=== PATIENT | male | born 1985 | race Caucasian/White ===

== ENCOUNTER 2016-11-29 16:18 | Emergency (ER) | payer OTHER ==
[2016-11-29] MEDS ORDERED: PROMETHAZINE INJ 25 MG/ML VIAL (J2550) As Ordered ONE (17:18)
[2016-11-29] MEDS ORDERED: NICOTINE 21MG/24HR 1 EA TRANSDERMAL As Ordered ONE (17:27)
[2016-11-29 17:44] LABS: MEAN CORPUSCULAR HGB CONC 34.4 g/dl (32.0-36.5); MEAN CORPUSCULAR VOLUME 93.1 fl (80.0-96.0); RED CELL DISTRIBUTION WIDTH 12.2 % (11.5-14.5)
[2016-11-29 18:14] LABS: ALBUMIN 4.6 GM/DL (3.2-5.2); ALBUMIN/GLOBULIN RATIO 1.12 (1.00-1.93); ALKALINE PHOSPHATASE 77 U/L (45-117); ALT/SGPT 94 U/L (12-78); ANION GAP 11 MEQ/L (8-16); AST/SGOT 104 U/L (15-37); BILIRUBIN,DIRECT 0.2 MG/DL (0.0-0.2); BILIRUBIN,TOTAL 0.6 MG/DL (0.2-1.0); BLOOD UREA NITROGEN 6 MG/DL (7-18); CALCIUM LEVEL 8.7 MG/DL (8.5-10.1); CARBON DIOXIDE LEVEL 28 MEQ/L (21-32); CHLORIDE LEVEL 107 MEQ/L (98-107); CREATININE FOR GFR 0.78 MG/DL (0.70-1.30); GLOMERULAR FILTRATION RATE > 60.0 (>60); GLUCOSE, FASTING 101 MG/DL (70-105); POTASSIUM SERUM 3.8 MEQ/L (3.5-5.1); SODIUM LEVEL 146 MEQ/L (136-145); TOTAL PROTEIN 8.7 GM/DL (6.4-8.2)
[2016-11-29] MEDS ORDERED: LORazepam 1 MG TAB As Ordered ONE (18:23)
--- NOTE | 2016-11-29 18:45 | EDDOCDS ---
Nurse's Notes [facility] Name: Osmin Montoya Age: 31 yrs Sex: Male : 1985 Arrival Date: 11/29/2016 Time: 16:18 Bed 30 Private MD: Diagnosis: Opioid abuse Presentation: 11/29 16:23 Presenting complaint: Patient states: I am a heroin addict I need buripheneprine. Adult hs1 Sepsis Screening: The patient does not have new or worsening altered mentation. Patient's respiratory rate is less than 22. Systolic blood pressure is greater than 100. Patient has a qSOFA score of 0- Negative Sepsis Screen. Suicide/Homicide risk assessment- the patient denies having any suicidal and/or homicidal ideations and does not present with any other emotional, behavioral or mental health complaints. 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 Transition of care: patient was not received from another setting of care. 16:23 Acuity: RADHA Level 3 hs1 16:23 Method Of Arrival: Walkin/Carried/Asstd hs1 Triage Assessment: 16:40 General: Appears in no apparent distress, Behavior is agitated, restless. Pain: Denies hs1 pain. Neurological: Level of Consciousness is awake, alert, obeys commands. Respiratory: Airway is patent Respiratory effort is even, unlabored, Respiratory pattern is regular, symmetrical. Derm: Skin is pink, warm & dry. Historical: - Allergies: no known allergies; - Home Meds: 1. none - PMHx: none; - PSHx: Appendectomy; - Social history: Smoking status: Patient uses tobacco products, heavy tobacco smoker. Patient uses street drugs, heroin, No barriers to communication noted, The patient speaks fluent Macanese, Speaks appropriately for age. - Family history: Not pertinent. - : The pt / caregiver states he / she is not on anticoagulants. Home medication list is obtained from the patient. - Exposure Risk Screening:: None identified. Screenin:54 Screening information is obtained from the patient. Fall risk: No risks identified. me3 Assistance ADL's: requires no assistance with activities of daily living. Abuse/DV Screen: The patient / caregiver reports he/she is: not in a situation that causes fear, pain or injury. Nutritional screening: No deficits noted. Advance Directives: Currently, there is no health care proxy. home support is adequate. Assessment: 16:54 General: Appears Behavior is inappropriate for age, pt out in [place] demanding to see the ut3 doctor right now, and he just needs suboxone. 16:56 Respiratory: No deficits noted. Airway is patent Respiratory effort is even, unlabored. me3 Derm: Skin is pink, warm & dry. 17:53 General: Appears comfortable, Behavior is cooperative. Respiratory: No deficits noted. me3 Airway is patent Respiratory effort is even, unlabored. Social Work Consult: 18:29 Social Work Note: Met pt at bedside regarding opiate withdrawal. Pt admits just ml4 informing his CASEY and he's been abusing Heroin(IV) for a long time. [facility] has arranged for him to be transported to a 30 day Rehab in [facility] tomorrow morning. Pt denies SI and HI, and states, "I just need Ativan to calm myself down." [facility]. No concerns noted. 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 ml4 Vital Signs: 16:29 BP 138 / 91; Pulse 99; Resp 18; Temp 96.3(O); Pulse Ox 100% on R/A; Weight 70.31 kg; l1 Height 6 ft. 0 in. (182.88 cm); 16:29 Body Mass Index 21.02 (70.31 kg, 182.88 cm) [facility] ED Course: 16:19 Patient visited by Annie Ramirez. lr2 16:19 Patient moved to Waiting lr2 16:20 Patient moved to 30 lr2 16:21 Patient visited by Nura Packer. [facility] 16:21 Psych Safety Check: Location: Psych Room. Visual Assessment: Cooperative. jml1 16:24 Triage Initiated hs1 16:30 Patient visited by Janet Meng PCA. amw 16:30 Patient visited by Nura Packer. jml1 16:45 Patient visited by Janet Meng PCA. amw 16:46 Chapis Henry LPN is Primary Nurse. me3 17:00 Patient visited by Janet Meng PCA. amw 17:17 Patient visited by Janet Meng PCA. amw 17:47 Gaurang Erickson FNP is PHCP. ke 17:47 Patient visited by Gaurang Erickson FNP. ke 17:47 Patient visited by Gaurang Erickson FNP. ke 17:54 The patient / caregiver is instructed regarding the plan of care and ED course. me3 18:00 [facility] Payment Agreement was scanned into [employer] and attached to record. zo 18:38 PSA Outpatient Referrals was scanned into [employer] and attached to record. ml4 18:43 No IV's were initiated during this patient's visit. No procedures done that require me3 assistance. Administered Medications: 17:20 Drug: Promethazine 25 mg [promethazine 25 mg/mL injection solution (1 mL)] Route: IM; hs1 Site: right deltoid; 17:30 Drug: Nicotine 1 applic [nicotine 21 mg/24 hr daily transdermal patch (1 patches)] me3 Route: Transdermal; Site: anterior chest wall; 18:27 Drug: LORazepam 2 mg [lorazepam 1 mg tablet (2 tabs)] Route: PO; me3 18:43 Not Given (Patient Refused): cloNIDine Patch 0.1 mg/24 hr 1 patches Transdermal me3 continuous Order Results: Lab Order: Acetaminophen Level; SPEC'M 11/29/16 17:31 Test: ACETAMINOPHEN LEVEL; Value: < 2.0; Range: 10.0-30.0; Abnormal: Below low normal; Units: UG/ML; Status: F Lab Order: Basic Metabolic Profile; SPEC'M 11/29/16 17:31 Test: GLUCOSE, FASTING; Value: 101; Range: 70-105; Units: MG/DL; Status: F Test: BLOOD UREA NITROGEN; Value: 6; Range: 7-18; Abnormal: Below low normal; Units: MG/DL; Status: F Test: CREATININE FOR GFR; Value: 0.78; Range: 0.70-1.30; Units: MG/DL; Status: F Test: GLOMERULAR FILTRATION RATE; Value: > 60.0; Range: >60; Status: F Test: SODIUM LEVEL; Value: 146; Range: 136-145; Abnormal: Above high normal; Units: MEQ/L; Status: F Test: POTASSIUM SERUM; Value: 3.8; Range: 3.5-5.1; Units: MEQ/L; Status: F Test: CHLORIDE LEVEL; Value: 107; Range: 98-107; Units: MEQ/L; Status: F Test: CARBON DIOXIDE LEVEL; Value: 28; Range: 21-32; Units: MEQ/L; Status: F Test: ANION GAP; Value: 11; Range: 8-16; Units: MEQ/L; Status: F Test: CALCIUM LEVEL; Value: 8.7; Range: 8.5-10.1; Units: MG/DL; Status: F Test Note: ; Units are mL/min/1.73 m2 Chronic Kidney Disease Staging per NKF: Stage I & II GFR >=60 Normal to Mildly Decreased Stage III GFR 30-59 Moderately Decreased Stage IV GFR 15-29 Severely Decreased Stage V GFR <15 Very Little GFR Left ESRD GFR <15 on PRINCIPAL EMBEDDED SOFTWARE ENGINEER Lab Order: Complete Blood Count; SPEC'11/29/16 17:31 Test: WHITE BLOOD COUNT; Value: 5.0; Range: 4.0-10.0; Units: K/mm3; Status: F Test: RED BLOOD COUNT; Value: 5.50; Range: 4.30-6.10; Units: M/mm3; Status: F Test: HEMOGLOBIN; Value: 17.6; Range: 14.0-18.0; Units: g/dl; Status: F Test: HEMATOCRIT; Value: 51.2; Range: 42.0-52.0; Units: %; Status: F Test: MEAN CORPUSCULAR VOLUME; Value: 93.1; Range: 80.0-96.0; Units: fl; Status: F Test: MEAN CORPUSCULAR HEMOGLOBIN; Value: 32.0; Range: 27.0-33.0; Units: pg; Status: F Test: MEAN CORPUSCULAR HGB CONC; Value: 34.4; Range: 32.0-36.5; Units: g/dl; Status: F Test: RED CELL DISTRIBUTION WIDTH; Value: 12.2; Range: 11.5-14.5; Units: %; Status: F Test: PLATELET COUNT, AUTOMATED; Value: 274; Range: 150-450; Units: k/mm3; Status: F Lab Order: Ethyl Alcohol (ethanol); SPEC'11/29/16 17:31 Test: ETHYL ALCOHOL (ETHANOL); Value: 0.365; Range: 0.000-0.010; Abnormal: Above high normal; Units: %; Status: F Lab Order: Liver Profile; SPEC'M 11/29/16 17:31 Test: AST/SGOT; Value: 104; Range: 15-37; Abnormal: Above high normal; Units: U/L; Status: F Test: ALT/SGPT; Value: 94; Range: 12-78; Abnormal: Above high normal; Units: U/L; Status: F Test: ALKALINE PHOSPHATASE; Value: 77; Range: 45-117; Units: U/L; Status: F Test: BILIRUBIN,TOTAL; Value: 0.6; Range: 0.2-1.0; Units: MG/DL; Status: F Test: BILIRUBIN,DIRECT; Value: 0.2; Range: 0.0-0.2; Units: MG/DL; Status: F Test: TOTAL PROTEIN; Value: 8.7; Range: 6.4-8.2; Abnormal: Above high normal; Units: GM/DL; Status: F Test: ALBUMIN; Value: 4.6; Range: 3.2-5.2; Units: GM/DL; Status: F Test: ALBUMIN/GLOBULIN RATIO; Value: 1.12; Range: 1.00-1.93; Status: F Lab Order: Salicylate Level; SPEC'M 11/29/16 17:31 Test: SALICYLATE LEVEL; Value: 2.5; Range: 5.0-30.0; Abnormal: Below low normal; Units: MG/DL; Status: F Lab Order: Thyroid Stimulating Hormone; SPEC'M 11/29/16 17:31 Test: THYROID STIMULATING HORMONE; Value: 0.507; Range: 0.358-3.740; Units: uIU/ML; Status: F Outcome: 18:25 Discharge ordered by Provider. avinash 18:43 Discharge Assessment: patient administered narcotics - yes. Pt provided with safe me3 discharge. The following High Risk Discharge criteria are identified: None. Discharged to home ambulatory, chain of command. Condition: stable. Discharge instructions given to patient, Instructed on discharge instructions, follow up and referral plans. medication usage, Demonstrated understanding of instructions, medications, Pt was receptive of discharge instructions/ teaching. No special radiology studies were completed. Property :Personal belongings accompany Pt. 18:44 Patient left the ED. me3 Signatures: Gaurang Erickson, BAIT PAINTER Chapis FlynnPATROL INSPECTOR PATROL INSPECTOR me3 Diane Simmons, PSA PSA ml4 Yasmeen Whitaker Hannah, JEROME RN hs1 Nura Packer jml1 Janet Meng, ASSEMBLER PING PONG TABLE ASSEMBLER PING PONG TABLE amw James, Annie lr2 MTDD
--- NOTE | 2016-11-29 18:45 | EDDOCDS ---
Physician Documentation [facility] Name: Osmin Montoya Age: 31 yrs Sex: Male : 1985 Arrival Date: 11/29/2016 Time: 16:18 Bed 30 Private MD: Disposition: 11/29/16 18:25 Discharged to Home/Self Care. Impression: Opioid abuse. - Condition is Stable. - Discharge Instructions: Opioid Use Disorder. - Prescriptions for Ativan 1 mg Oral Tablet - take 1 tablet by ORAL route every 8 hours As needed; 6 tablet. - Medication Reconciliation, Local Pharmacy Hours form. - Follow up: Private Physician; When: Tomorrow; Reason: Continuance of care. - Problem is an ongoing problem. - Symptoms are unchanged. Historical: - Allergies: no known allergies; - Home Meds: 1. none - PMHx: none; - PSHx: Appendectomy; - Social history: Smoking status: Patient uses tobacco products, heavy tobacco smoker. Patient uses street drugs, heroin, No barriers to communication noted, The patient speaks fluent Persian, Speaks appropriately for age. - Family history: Not pertinent. - : The pt / caregiver states he / she is not on anticoagulants. Home medication list is obtained from the patient. - Exposure Risk Screening:: None identified. Vital Signs: 11/29 16:29 BP 138 / 91; Pulse 99; Resp 18; Temp 96.3(O); Pulse Ox 100% on R/A; Weight 70.31 kg / jml1 155.01 lbs; Height 6 ft. 0 in. (182.88 cm); 16:29 Body Mass Index 21.02 (70.31 kg, 182.88 cm) jml1 MDM: 16:36 Consult PFS/PSA/Branch Lending Manager ordered. hs1 16:36 Consult PFS/PSA/Branch Lending Manager: Patient's case requires discussion with on-call hs1 Psychiatrist ordered. 16:36 PSA/PFS to call Nursing Order Selector, to enter patient data on [place] Safe [place] if patient hs1 involuntarily admitted or transferred for SI or HI ordered. 16:36 Confirm accurate psychiatric medication list and times of last dosage ordered. hs1 16:36 Detain Pt Until Medically/PFS Cleared ordered. hs1 16:37 Acetaminophen Level Ordered. EDMS 16:37 Basic Metabolic Profile Ordered. EDMS 16:37 Complete Blood Count Ordered. EDMS 16:37 Drug Eval Toxicology ED Only Ordered. EDMS 16:37 Ethyl Alcohol (ethanol) Ordered. EDMS 16:37 Liver Profile Ordered. EDMS 16:37 Salicylate Level Ordered. EDMS 16:37 Thyroid Stimulating Hormone Ordered. EDMS 16:47 REGULAR DIET PLASTIC LEON+DIET ordered. EDMS 17:16 Promethazine 25 mg IM once ordered. sd1 17:23 Nicotine Patch 21 mg/24 hr 1 applic Transdermal once ordered. sd1 17:52 Financial registration complete. zo 18:00 [facility] Payment Agreement was scanned into [employer] and attached to record. zo 18:07 Consult PFS/PSA/Branch Lending Manager complete. ml4 18:07 Consult PFS/PSA/Branch Lending Manager: Patient's case requires discussion with on-call ml4 Psychiatrist complete. 18:07 PSA/PFS to call Nursing Order Selector, to enter patient data on [place] Safe Act if patient ml4 involuntarily admitted or transferred for SI or HI complete. 18:12 LORazepam 2 mg PO once ordered. ke 18:28 cloNIDine Patch 0.1 mg/24 hr 1 patches Transdermal continuous ordered. ke 18:38 PSA Outpatient Referrals was scanned into [employer] and attached to record. ml4 Administered Medications: 17:20 Drug: Promethazine 25 mg [promethazine 25 mg/mL injection solution (1 mL)] Route: IM; hs1 Site: right deltoid; 17:30 Drug: Nicotine 1 applic [nicotine 21 mg/24 hr daily transdermal patch (1 patches)] me3 Route: Transdermal; Site: anterior chest wall; 18:27 Drug: LORazepam 2 mg [lorazepam 1 mg tablet (2 tabs)] Route: PO; me3 18:43 Not Given (Patient Refused): cloNIDine Patch 0.1 mg/24 hr 1 patches Transdermal me3 continuous Signatures: Dispatcher [employer] EDMS Chelo Kaufman MD MD sd1 Gaurang Erickson, ONCOLOGY SPECIALIST ONCOLOGY SPECIALIST Chapis Bernal LPN BANKING SERVICES CLERK me3 Diane Simmons, PSA PSA ml4 Yasmeen Whitaker Hannah, RN RN hs1 The chart was reviewed and I authenticate all verbal orders and agree with the evaluation and treatment provided.Attachments: 18:00 [facility] Payment Agreement zo MTDD
--- NOTE | 2016-12-01 19:45 | EDDOCDS ---
Physician Documentation [facility] Name: Osmin Izquierdo Age: 31 yrs Sex: Male : 1985 Arrival Date: 11/29/2016 Time: 16:18 Bed 30 Private MD: Disposition: 11/29/16 18:25 Discharged to Home/Self Care. Impression: Opioid abuse. - Condition is Stable. - Discharge Instructions: Opioid Use Disorder. - Prescriptions for Ativan 1 mg Oral Tablet - take 1 tablet by ORAL route every 8 hours As needed; 6 tablet. - Medication Reconciliation, Local Pharmacy Hours form. - Follow up: Private Physician; When: Tomorrow; Reason: Continuance of care. - Problem is an ongoing problem. - Symptoms are unchanged. Historical: - Allergies: no known allergies; - Home Meds: 1. none - PMHx: none; - PSHx: Appendectomy; - Social history: Smoking status: Patient uses tobacco products, heavy tobacco smoker. Patient uses street drugs, heroin, No barriers to communication noted, The patient speaks fluent Pashto, Speaks appropriately for age. - Family history: Not pertinent. - : The pt / caregiver states he / she is not on anticoagulants. Home medication list is obtained from the patient. - Exposure Risk Screening:: None identified. Vital Signs: 11/29 16:29 BP 138 / 91; Pulse 99; Resp 18; Temp 96.3(O); Pulse Ox 100% on R/A; Weight 70.31 kg / jml1 155.01 lbs; Height 6 ft. 0 in. (182.88 cm); 16:29 Body Mass Index 21.02 (70.31 kg, 182.88 cm) jml1 MDM: 16:36 Consult PFS/PSA/Health Care Aide ordered. hs1 16:36 Consult PFS/PSA/Health Care Aide: Patient's case requires discussion with on-call hs1 Psychiatrist ordered. 16:36 PSA/PFS to call Nursing Fruit Tester, to enter [place] data [place] if patient hs1 involuntarily admitted or transferred for SI or HI ordered. 16:36 Confirm accurate psychiatric medication list and times of last dosage ordered. hs1 16:36 Detain Pt Until Medically/PFS Cleared ordered. hs1 16:37 Acetaminophen Level Ordered. EDMS 16:37 Basic Metabolic Profile Ordered. EDMS 16:37 Complete Blood Count Ordered. EDMS 16:37 Drug Eval Toxicology ED Only Ordered. EDMS 16:37 Ethyl Alcohol (ethanol) Ordered. EDMS 16:37 Liver Profile Ordered. EDMS 16:37 Salicylate Level Ordered. EDMS 16:37 Thyroid Stimulating Hormone Ordered. EDMS 16:47 REGULAR DIET PLASTIC LEON+DIET ordered. EDMS 17:16 Promethazine 25 mg IM once ordered. sd1 17:23 Nicotine Patch 21 mg/24 hr 1 applic Transdermal once ordered. sd1 17:52 Financial registration complete. zo 18:00 [facility] Payment Agreement was scanned into [employer] and attached to record. zo 18:07 Consult PFS/PSA/Health Care Aide complete. ml4 18:07 Consult PFS/PSA/Health Care Aide: Patient's case requires discussion with on-call ml4 Psychiatrist complete. 18:07 PSA/PFS to call Nursing Fruit Tester, to enter patient data on [place] Safe Act if patient ml4 involuntarily admitted or transferred for SI or HI complete. 18:12 LORazepam 2 mg PO once ordered. ke 18:28 cloNIDine Patch 0.1 mg/24 hr 1 patches Transdermal continuous ordered. ke 18:38 PSA Outpatient Referrals was scanned into [employer] and attached to record. ml4 11/30 12:24 T-Sheet-- Draft Copy was scanned into [employer] and attached to record. gb Administered Medications: 11/29 17:20 Drug: Promethazine 25 mg [promethazine 25 mg/mL injection solution (1 mL)] Route: IM; hs1 Site: right deltoid; 17:30 Drug: Nicotine 1 applic [nicotine 21 mg/24 hr daily transdermal patch (1 patches)] me3 Route: Transdermal; Site: anterior chest wall; 18:27 Drug: LORazepam 2 mg [lorazepam 1 mg tablet (2 tabs)] Route: PO; me3 18:43 Not Given (Patient Refused): cloNIDine Patch 0.1 mg/24 hr 1 patches Transdermal me3 continuous Signatures: Dispatcher [employer] EDMS Chelo Kaufman MD MD sd1 Ingris Santana, Reg Reg gb Gaurang Erickson, MUSIC PROFESSOR MUSIC PROFESSOR Chapis Bernal,PROFESSOR OF ASTRONOMY PROFESSOR OF ASTRONOMY me3 Diane Simmons, PSA PSA ml4 Yasmeen Whitaker Hannah, RN RN hs1 The chart was reviewed and I authenticate all verbal orders and agree with the evaluation and treatment provided.Attachments: 18:00 [facility] Payment Agreement zo 11/30 12:24 T-Sheet-- Draft Copy gb Chart Complete MTDD
--- NOTE | 2016-12-01 19:45 | EDDOCDS ---
Physician Documentation [facility] Name: Osmin Izquierdo Age: 31 yrs Sex: Male : 1985 Arrival Date: 11/29/2016 Time: 16:18 Bed 30 Private MD: Disposition: 11/29/16 18:25 Discharged to Home/Self Care. Impression: Opioid abuse. - Condition is Stable. - Discharge Instructions: Opioid Use Disorder. - Prescriptions for Ativan 1 mg Oral Tablet - take 1 tablet by ORAL route every 8 hours As needed; 6 tablet. - Medication Reconciliation, Local Pharmacy Hours form. - Follow up: Private Physician; When: Tomorrow; Reason: Continuance of care. - Problem is an ongoing problem. - Symptoms are unchanged. Historical: - Allergies: no known allergies; - Home Meds: 1. none - PMHx: none; - PSHx: Appendectomy; - Social history: Smoking status: Patient uses tobacco products, heavy tobacco smoker. Patient uses street drugs, heroin, No barriers to communication noted, The patient speaks fluent Persian, Speaks appropriately for age. - Family history: Not pertinent. - : The pt / caregiver states he / she is not on anticoagulants. Home medication list is obtained from the patient. - Exposure Risk Screening:: None identified. Vital Signs: 11/29 16:29 BP 138 / 91; Pulse 99; Resp 18; Temp 96.3(O); Pulse Ox 100% on R/A; Weight 70.31 kg / jml1 155.01 lbs; Height 6 ft. 0 in. (182.88 cm); 16:29 Body Mass Index 21.02 (70.31 kg, 182.88 cm) jml1 MDM: 16:36 Consult PFS/PSA/Manager Spring ordered. hs1 16:36 Consult PFS/PSA/Manager Spring: Patient's case requires discussion with on-call hs1 Psychiatrist ordered. 16:36 PSA/PFS to call Nursing Greenhouse Superintendent, to enter [place] data [place] if patient hs1 involuntarily admitted or transferred for SI or HI ordered. 16:36 Confirm accurate psychiatric medication list and times of last dosage ordered. hs1 16:36 Detain Pt Until Medically/PFS Cleared ordered. hs1 16:37 Acetaminophen Level Ordered. EDMS 16:37 Basic Metabolic Profile Ordered. EDMS 16:37 Complete Blood Count Ordered. EDMS 16:37 Drug Eval Toxicology ED Only Ordered. EDMS 16:37 Ethyl Alcohol (ethanol) Ordered. EDMS 16:37 Liver Profile Ordered. EDMS 16:37 Salicylate Level Ordered. EDMS 16:37 Thyroid Stimulating Hormone Ordered. EDMS 16:47 REGULAR DIET PLASTIC LEON+DIET ordered. EDMS 17:16 Promethazine 25 mg IM once ordered. sd1 17:23 Nicotine Patch 21 mg/24 hr 1 applic Transdermal once ordered. sd1 17:52 Financial registration complete. zo 18:00 [facility] Payment Agreement was scanned into [employer] and attached to record. zo 18:07 Consult PFS/PSA/Manager Spring complete. ml4 18:07 Consult PFS/PSA/Manager Spring: Patient's case requires discussion with on-call ml4 Psychiatrist complete. 18:07 PSA/PFS to call Nursing Greenhouse Superintendent, to enter patient data on [place] Safe Act if patient ml4 involuntarily admitted or transferred for SI or HI complete. 18:12 LORazepam 2 mg PO once ordered. ke 18:28 cloNIDine Patch 0.1 mg/24 hr 1 patches Transdermal continuous ordered. ke 18:38 PSA Outpatient Referrals was scanned into [employer] and attached to record. ml4 11/30 12:24 T-Sheet-- Draft Copy was scanned into [employer] and attached to record. gb Administered Medications: 11/29 17:20 Drug: Promethazine 25 mg [promethazine 25 mg/mL injection solution (1 mL)] Route: IM; hs1 Site: right deltoid; 17:30 Drug: Nicotine 1 applic [nicotine 21 mg/24 hr daily transdermal patch (1 patches)] me3 Route: Transdermal; Site: anterior chest wall; 18:27 Drug: LORazepam 2 mg [lorazepam 1 mg tablet (2 tabs)] Route: PO; me3 18:43 Not Given (Patient Refused): cloNIDine Patch 0.1 mg/24 hr 1 patches Transdermal me3 continuous Signatures: Dispatcher [employer] EDMS Chelo Kaufman MD MD sd1 Ingris Santana, Reg Reg gb Gaurang Erickson, THREAD REELER THREAD REELER Chapis Bernal,BARREL LAPPER BARREL LAPPER me3 Diane Simmons, PSA PSA ml4 Yasmeen Whitaker Hannah, RN RN hs1 The chart was reviewed and I authenticate all verbal orders and agree with the evaluation and treatment provided.Attachments: 18:00 [facility] Payment Agreement zo 11/30 12:24 T-Sheet-- Draft Copy gb Chart Complete MTDD
--- NOTE | 2016-12-01 19:45 | EDDOCDS ---
Nurse's Notes [facility] Name: Osmin Izquierdo Age: 31 yrs Sex: Male : 1985 Arrival Date: 11/29/2016 Time: 16:18 Bed 30 Private MD: Diagnosis: Opioid abuse Presentation: 11/29 16:23 Presenting complaint: Patient states: I am a heroin addict I need buripheneprine. Adult hs1 Sepsis Screening: The patient does not have new or worsening altered mentation. Patient's respiratory rate is less than 22. Systolic blood pressure is greater than 100. Patient has a qSOFA score of 0- Negative Sepsis Screen. Suicide/Homicide risk assessment- the patient denies having any suicidal and/or homicidal ideations and does not present with any other emotional, behavioral or mental health complaints. 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 Transition of care: patient was not received from another setting of care. 16:23 Acuity: RADHA Level 3 hs1 16:23 Method Of Arrival: Walkin/Carried/Asstd hs1 Triage Assessment: 16:40 General: Appears in no apparent distress, Behavior is agitated, restless. Pain: Denies hs1 pain. Neurological: Level of Consciousness is awake, alert, obeys commands. Respiratory: Airway is patent Respiratory effort is even, unlabored, Respiratory pattern is regular, symmetrical. Derm: Skin is pink, warm & dry. Historical: - Allergies: no known allergies; - Home Meds: 1. none - PMHx: none; - PSHx: Appendectomy; - Social history: Smoking status: Patient uses tobacco products, heavy tobacco smoker. Patient uses street drugs, heroin, No barriers to communication noted, The patient speaks fluent [place], Speaks appropriately for age. - Family history: Not pertinent. - : The pt / caregiver states he / she is not on anticoagulants. Home medication list is obtained from the patient. - Exposure Risk Screening:: None identified. Screenin:54 Screening information is obtained from the patient. Fall risk: No risks identified. me3 Assistance ADL's: requires no assistance with activities of daily living. Abuse/DV Screen: The patient / caregiver reports he/she is: not in a situation that causes fear, pain or injury. Nutritional screening: No deficits noted. Advance Directives: Currently, there is no health care proxy. home support is adequate. Assessment: 16:54 General: Appears Behavior is inappropriate for age, pt out in [place] demanding to see the ut3 doctor right now, and he just needs suboxone. 16:56 Respiratory: No deficits noted. Airway is patent Respiratory effort is even, unlabored. me3 Derm: Skin is pink, warm & dry. 17:53 General: Appears comfortable, Behavior is cooperative. Respiratory: No deficits noted. me3 Airway is patent Respiratory effort is even, unlabored. Social Work Consult: 18:29 Social Work Note: Met pt at bedside regarding opiate withdrawal. Pt admits just ml4 informing his CASEY and he's been abusing Heroin(IV) for a long time. [facility] has arranged for him to be transported to a 30 day Rehab in [facility] tomorrow morning. Pt denies SI and HI, and states, "I just need Ativan to calm myself down." Pt will be returning to the [facility] for 24 hour supervision. No concerns noted. 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 ml4 Vital Signs: 16:29 BP 138 / 91; Pulse 99; Resp 18; Temp 96.3(O); Pulse Ox 100% on R/A; Weight 70.31 kg; l1 Height 6 ft. 0 in. (182.88 cm); 16:29 Body Mass Index 21.02 (70.31 kg, 182.88 cm) [facility] ED Course: 16:19 Patient visited by Annie Ramirez. lr2 16:19 Patient moved to Waiting lr2 16:20 Patient moved to 30 lr2 16:21 Patient visited by Nura Packer. [facility] 16:21 Psych Safety Check: Location: Psych Room. Visual Assessment: Cooperative. jml1 16:24 Triage Initiated hs1 16:30 Patient visited by Janet Meng PCA. amw 16:30 Patient visited by Nura Packer. jml1 16:45 Patient visited by Janet Meng PCA. amw 16:46 Chapis Henry LPN is Primary Nurse. me3 17:00 Patient visited by Janet Meng PCA. amw 17:17 Patient visited by Janet Meng PCA. amw 17:47 Gaurang Erickson FNP is PHCP. ke 17:47 Patient visited by Gaurang Erickson FNP. ke 17:47 Patient visited by Gaurang Erickson FNP. ke 17:54 The patient / caregiver is instructed regarding the plan of care and ED course. me3 18:00 [facility] Payment Agreement was scanned into [employer] and attached to record. zo 18:38 [facility] Outpatient Referrals was scanned into [employer] and attached to record. ml4 18:43 No IV's were initiated during this patient's visit. No procedures done that require me3 assistance. 19:38 Patient name changed from Osmin\\S\\\\S\\Mclaughlan\\S\\ to Osmin\\S\\ \\S\\Mclaughlan. EDMS 11/30 12:24 T-Sheet-- Draft Copy was scanned into [employer] and attached to record. gb 13:56 Patient name changed from Osmin\\S\\ \\S\\Mclaughlan\\S\\ to Osmin\\S\\Vincent\\S\\Izquierdo. EDMS Administered Medications: 11/29 17:20 Drug: Promethazine 25 mg [promethazine 25 mg/mL injection solution (1 mL)] Route: IM; hs1 Site: right deltoid; 17:30 Drug: Nicotine 1 applic [nicotine 21 mg/24 hr daily transdermal patch (1 patches)] me3 Route: Transdermal; Site: anterior chest wall; 18:27 Drug: LORazepam 2 mg [lorazepam 1 mg tablet (2 tabs)] Route: PO; me3 18:43 Not Given (Patient Refused): cloNIDine Patch 0.1 mg/24 hr 1 patches Transdermal me3 continuous Order Results: Lab Order: Acetaminophen Level; SPEC'M 11/29/16 17:31 Test: ACETAMINOPHEN LEVEL; Value: < 2.0; Range: 10.0-30.0; Abnormal: Below low normal; Units: UG/ML; Status: F Lab Order: Basic Metabolic Profile; SPEC'M 11/29/16 17:31 Test: GLUCOSE, FASTING; Value: 101; Range: 70-105; Units: MG/DL; Status: F Test: BLOOD UREA NITROGEN; Value: 6; Range: 7-18; Abnormal: Below low normal; Units: MG/DL; Status: F Test: CREATININE FOR GFR; Value: 0.78; Range: 0.70-1.30; Units: MG/DL; Status: F Test: GLOMERULAR FILTRATION RATE; Value: > 60.0; Range: >60; Status: F Test: SODIUM LEVEL; Value: 146; Range: 136-145; Abnormal: Above high normal; Units: MEQ/L; Status: F Test: POTASSIUM SERUM; Value: 3.8; Range: 3.5-5.1; Units: MEQ/L; Status: F Test: CHLORIDE LEVEL; Value: 107; Range: 98-107; Units: MEQ/L; Status: F Test: CARBON DIOXIDE LEVEL; Value: 28; Range: 21-32; Units: MEQ/L; Status: F Test: ANION GAP; Value: 11; Range: 8-16; Units: MEQ/L; Status: F Test: CALCIUM LEVEL; Value: 8.7; Range: 8.5-10.1; Units: MG/DL; Status: F Test Note: ; Units are mL/min/1.73 m2 Chronic Kidney Disease Staging per NKF: Stage I & II GFR >=60 Normal to Mildly Decreased Stage III GFR 30-59 Moderately Decreased Stage IV GFR 15-29 Severely Decreased Stage V GFR <15 Very Little GFR Left ESRD GFR <15 on SCHOOL LIBRARY MEDIA SPECIALIST Lab Order: Complete Blood Count; [facility]'M 11/29/16 17:31 Test: WHITE BLOOD COUNT; Value: 5.0; Range: 4.0-10.0; Units: K/mm3; Status: F Test: RED BLOOD COUNT; Value: 5.50; Range: 4.30-6.10; Units: M/mm3; Status: F Test: HEMOGLOBIN; Value: 17.6; Range: 14.0-18.0; Units: g/dl; Status: F Test: HEMATOCRIT; Value: 51.2; Range: 42.0-52.0; Units: %; Status: F Test: MEAN CORPUSCULAR VOLUME; Value: 93.1; Range: 80.0-96.0; Units: fl; Status: F Test: MEAN CORPUSCULAR HEMOGLOBIN; Value: 32.0; Range: 27.0-33.0; Units: pg; Status: F Test: MEAN CORPUSCULAR HGB CONC; Value: 34.4; Range: 32.0-36.5; Units: g/dl; Status: F Test: RED CELL DISTRIBUTION WIDTH; Value: 12.2; Range: 11.5-14.5; Units: %; Status: F Test: PLATELET COUNT, AUTOMATED; Value: 274; Range: 150-450; Units: k/mm3; Status: F Lab Order: Ethyl Alcohol (ethanol); SPEC'M 11/29/16 17:31 Test: ETHYL ALCOHOL (ETHANOL); Value: 0.365; Range: 0.000-0.010; Abnormal: Above high normal; Units: %; Status: F Lab Order: Liver Profile; SPEC'M 11/29/16 17:31 Test: AST/SGOT; Value: 104; Range: 15-37; Abnormal: Above high normal; Units: U/L; Status: F Test: ALT/SGPT; Value: 94; Range: 12-78; Abnormal: Above high normal; Units: U/L; Status: F Test: ALKALINE PHOSPHATASE; Value: 77; Range: 45-117; Units: U/L; Status: F Test: BILIRUBIN,TOTAL; Value: 0.6; Range: 0.2-1.0; Units: MG/DL; Status: F Test: BILIRUBIN,DIRECT; Value: 0.2; Range: 0.0-0.2; Units: MG/DL; Status: F Test: TOTAL PROTEIN; Value: 8.7; Range: 6.4-8.2; Abnormal: Above high normal; Units: GM/DL; Status: F Test: ALBUMIN; Value: 4.6; Range: 3.2-5.2; Units: GM/DL; Status: F Test: ALBUMIN/GLOBULIN RATIO; Value: 1.12; Range: 1.00-1.93; Status: F Lab Order: Salicylate Level; SPEC'11/29/16 17:31 Test: SALICYLATE LEVEL; Value: 2.5; Range: 5.0-30.0; Abnormal: Below low normal; Units: MG/DL; Status: F Lab Order: Thyroid Stimulating Hormone; SPEC'M 11/29/16 17:31 Test: THYROID STIMULATING HORMONE; Value: 0.507; Range: 0.358-3.740; Units: uIU/ML; Status: F Outcome: 18:25 Discharge ordered by Provider. avinash 18:43 Discharge Assessment: patient administered narcotics - yes. Pt provided with safe me3 discharge. The following High Risk Discharge criteria are identified: None. Discharged to home ambulatory, chain of command. Condition: stable. Discharge instructions given to patient, Instructed on discharge instructions, follow up and referral plans. medication usage, Demonstrated understanding of instructions, medications, Pt was receptive of discharge instructions/ teaching. No special radiology studies were completed. Property :Personal belongings accompany Pt. 18:44 Patient left the ED. me3 Signatures: Dispatcher [employer] EDMS Ingris Santana, Reg Reg gb Gaurang Erickson, INDEPENDENT INSURANCE ADJUSTER INDEPENDENT INSURANCE ADJUSTER Chapis Bernal,ENTERPRISE INTEGRATION DEVELOPER ENTERPRISE INTEGRATION DEVELOPER me3 Diane Simmons, PSA PSA ml4 Yasmeen Whitaker Hannah, RN RN hs1 Nura Packer jml1 Janet Meng, MANGLE TENDER CLOTH MANGLE TENDER CLOTH amw Annie Ramirez lr2 Chart Complete MTDD
== END 2016-11-29 18:44 | disposition home or self-care (01) ==
LOC: M ED 16:18
DX: F11.10 Opioid abuse, uncomplicated (principal); F32.9 Major depressive disorder, single episode, unspecified; F41.9 Anxiety disorder, unspecified; F17.210 Nicotine dependence, cigarettes, uncomplicated
CPT/HCPCS: 36415; 80048; 80076; 84443; 85027; 96372; 99283; G0480